=== PATIENT | female | born 1965 | race African-American/Black ===

== ENCOUNTER 2019-06-08 16:27 | Emergency (ER) | payer BC ==
[2012-11-16 07:14] VITALS: Ht 167.6 cm; Wt 111.4 kg
[~2019-06-08] VITALS: Ht 167.6 cm; Wt 111.4 kg
[2019-06-08] MEDS ORDERED: FUROSEMIDE20 MG PO (16:34)
[2019-06-08] MEDS ORDERED: K-TAB10 MEQ PO (16:34)
[2019-06-08] MEDS ORDERED: METOPROLOL TART50 MG PO (16:35)
[2019-06-08] MEDS ORDERED: ZYRTEC10 MG PO (16:35)
[2019-06-08] MEDS ORDERED: ZETIA10 MG PO (16:35)
[2019-06-08] MEDS ORDERED: NORVASC5 MG PO (16:35)
[2019-06-08] MEDS ORDERED: PIOGLITAZONE15 MG PO (16:35)
[2019-06-08] MEDS ORDERED: MULTI-DAY VITAM1 TAB PO (16:36)
[2019-06-08] MEDS ORDERED: VOLTAREN75 MG PO (18:09)
[2019-06-08 18:24] VITALS: BP 140/81
== END 2019-06-08 18:15 | disposition home or self-care (01) ==
LOC: D.ER 16:27
DX: M79.661 Pain in right lower leg (principal); R22.41 Localized swelling, mass and lump, right lower limb

== ENCOUNTER 2019-07-16 09:25 | Day surgery (SDC) | payer BC ==
[2019-07-15 11:10] LABS: HEMATOCRIT 38.6 % (36.0-48.0); HEMOGLOBIN 12.6 g/dL (12-16); MCH 26.8 pg (26.0-34.0); MCHC 32.6 g/dL (31.0-37.0); MEAN PLATELET VOLUME 9.8 fL (7.4-10.4); RBC 4.71 10x6/uL (4.00-5.40); RDW 14.2 % (11.5-14.5); WBC 7.4 10x3/uL (4.8-10.8)
[~2019-07-16] VITALS: Ht 167.6 cm; Wt 108.9 kg
[~2019-07-16 09:25] MED LIST: ALBUTEROL SULF8.5 GM INH; FUROSEMIDE20 MG PO; HYDROCODON-ACE1 EA10 PO; K-TAB10 MEQ PO; METOPROLOL TART50 MG PO; MULTI-DAY VITAM1 TAB PO; NEURONTIN 300300 MG PO; NITROSTAT0.3 MG SL; NORVASC5 MG PO; PIOGLITAZONE15 MG PO; TOUJEO SOL300 UNIT/1 SC; VOLTAREN75 MG PO; ZETIA10 MG PO; ZYRTEC10 MG PO
[2019-07-16 09:56] VITALS: BP 149/78; Ht 167.6 cm; Wt 108.9 kg
[2019-07-16] MEDS ORDERED: VISTARIL50 MG PO (12:31)
[2019-07-16] MEDS ORDERED: DILAUDID4 MG PO (12:31)
[2019-07-16] MEDS ORDERED: ELIQUIS2.5 MG PO (12:40)
--- NOTE | 2019-07-16 15:42 | NUR ---
1425 PT ASSISTED TO BR WITH WC TO VOID. PT AWARE THAT SHE IS NOT TO BEAR ANY WEIGHT ON RIGHT FOOT AND ACKNOWLEDGES INSTRUCTIONS. PT VOIDED WITHOUT DIFFICULTY.
--- NOTE | 2019-07-16 15:44 | NUR ---
1430 REVIEWED WITH PT THE PROPER WAY TO USE CRUTCHES WHICH PT DEMONSTRATED.
--- NOTE | 2019-07-16 15:48 | NUR ---
1437 IV DC'D. CATHETER TIP INTACT. NO BLEEDING AT SITE. BANDADID APPLIED.
--- NOTE | 2019-07-17 08:41 | OP ---
PATIENT NAME: JAMES WALLACE MEDICAL RECORD: [id number] :61 LOCATION:[facility] ADMISSION DATE: SURGEON: MITCHELL KRAMER DO DATE OF OPERATION: 07/16/2019 PROCEDURE PERFORMED: Right ankle Brostrom lateral ligament reconstruction. PREOPERATIVE DIAGNOSIS: Chronic right ankle instability. POSTOPERATIVE DIAGNOSIS: Chronic right ankle instability. INDICATIONS: Ms. Wallace is a 54-year-old female who has had chronic ankle sprains and this was a constant, it rolls on her. She was tired of dealing with the pain and instability. She has been through therapy and has a worn a boot and to no avail. She had an MRI, which showed a tear in the ATFL and she had a positive anterior drawer and talar tilt on exam. I informed her that she would be at risk for re-tearing and chronic ankle sprains. We will try to get the ligaments repaired and tighten them up and she will be in a splint for about 2 weeks and then a walking boot and then slowly gradually wean off of it until about 6-8 weeks. She was at risk for blood clots, infection, bleeding, damage to nerves and vessels, need for further surgery, continued instability. She was okay with those risks and signed the consent. SURGEON: Mitchell Kramer DO DESCRIPTION OF PROCEDURE: The patient was given a block by anesthesia in the preoperative area, was taken to the operative suite, laid in the left lateral decubitus position with the right ankle up. The right lower extremity was then prepped and draped in sterile fashion after the patient was sedated and an LMA was placed. Time-out was performed, everyone was in agreement with correct side, site, patient and procedure. After she had been prepped and draped, the Esmarch was used to exsanguinate the right lower extremity, tourniquet was inflated to 350 mmHg, was up for 23 minutes. Incision then began over the fibula in a diagonal portion at the distal tip and careful dissection was made down to the distal fibula on the anterior side and over on the inferior side. The ATFL was seen as well as the CFL. These were sharply dissected off of the fibula and then two 2.5 anchors were put in, one more anterior and distal on the other one at the distal portion. The two suture limbs from each were used, the anterior one in the ATFL to tighten it up and then through the inferior retinaculum to pull it up to use it as an extra buffer. The same was done for the CFL 2 sutures and a horizontal mattress fashion were used and taken through the inferior retinaculum as well, pulling it up. This tightened the ligaments up nicely and then these were tied down and then holding the ankle in an everted and dorsiflexed position they were tied down and then a 2.9 PushLock was used to put at all 4 limbs down into the fibula after the hole was drilled. This tightened it up very nicely. The anterior drawer and talar tilt was tested after the repair and held very well. Tourniquet was then let down and the incision was closed with 2-0 Vicryl in an inverted interrupted fashion, 4-0 Monocryl ran on the skin and Prineo glue placed on the skin. She was then placed in a well-padded dressing with Adaptic, 4 x 4s, over the incision and ABDs on the heel and on the anterior ankle and then covered in cast padding and a 4 x 30 splint was placed posteriorly with the ankle dorsiflexed to neutral and secured with an Conrado wrap. She was then awakened and taken to recovery in stable condition. OPERATIVE REPORT [id number] JAMES WALLACE BLOOD LOSS: Minimal. COMPLICATIONS: None. TRANSINT:[id number] Voice Confirmation ID: [id number] DOCUMENT ID: [id number] MITCHELL KRAMER DO at 0841 CC: [id number] DICTATION DATE: 07/16/19 1239 [place]: 07/16/19 1311 [facility] 07/16/19 [facility] [address] [id number]
== END 2019-07-16 14:53 | disposition home or self-care (01) ==
LOC: D.OPS 09:25 → D.PAN 12:30 → D.OPS 14:53
PROVIDERS: Anesthesiology; ATTEND Orthopaedic Surgery
DX: M25.371 Other instability, right ankle (principal)

== ENCOUNTER → 2020-02-07 09:05 | Outpatient (CLI) | payer OTHER ==
[2019-07-16 09:56] VITALS: BMI 38.8
[~2020-02-07 09:05] MED LIST changes: +DILAUDID4 MG PO; +ELIQUIS2.5 MG PO; +VISTARIL50 MG PO
== END | disposition home or self-care (01) ==
LOC: D.RT 09:05
PROVIDERS: ATTEND Pediatrics
DX: Z02.71 Encounter for disability determination (principal)